=== PATIENT | male | born 1975 | race Caucasian/White ===

== ENCOUNTER 2025-02-10 03:08 | Inpatient (IN) | payer SELFPAY ==
[~2025-02-10] VITALS: Ht 162.6 cm; Wt 74.8 kg
[2025-02-10 04:00] LABS: BASOPHILS % 0.6 % (0.0-2.0); EOSINOPHILS % 3.3 % (0.0-5.0); HEMATOCRIT. 47.3 % (42.0-52.0); HEMOGLOBIN. 15.6 g/dL (14.0-18.0); LYMPHOCYTES % 43.9 % (20.0-50.0); MEAN PLATELET VOLUME 8.2 fl (7.4-10.4); MONOCYTES % 6.4 % (2.0-8.0); NEUTROPHILS % 45.8 % (40.0-76.0); PLATELET 198 x1000/uL (130-400); RED BLOOD CELL COUNT 5.04 mill/uL (4.7-6.1); RED CELL DISTRIBUTION WIDTH 13.6 % (11.6-14.6); WHITE BLOOD COUNT 4.7 x1000/uL (4.5-11.0)
[2025-02-10 04:14] LABS: ALANINE AMINOTRANSFERASE 50 IU/L (10-49); ALBUMIN 4.4 g/dL (3.2-4.8); ASPARTATE AMINOTRANSFERASE 55 IU/L (<34); BILIRUBIN TOTAL 0.3 mg/dL (0.1-1.0); PROTEIN TOTAL 7.5 g/dL (6.0-8.3)
[2025-02-10 04:45] LABS: CHLORIDE 109 mEq/L (98-107); SODIUM 145 mEq/L (136-145)
[2025-02-10 04:46] LABS: CALCIUM 8.7 mg/dL (8.7-10.4); CARBON DIOXIDE 23 mEq/L (21-32)
[2025-02-10 04:49] LABS: BILIRUBIN DIRECT < 0.1 mg/dL (<=3.0); TROPONIN I HIGH SENSITIVITY 292 ng/L (3.0-53)
[2025-02-10 04:51] LABS: CREATININE 0.6 mg/dL (0.6-1.3); GLUCOSE 169 mg/dL (70-105); UREA NITROGEN BLOOD 8 mg/dL (9-23)
[2025-02-10] MEDS: ASPIRIN 325MG EC TABLET PO ONE (05:21)
[2025-02-10] MEDS ORDERED: CLONIDINE 0.1MG TABLET PO PRN (08:30)
[2025-02-10] MEDS ORDERED: MAGNESIUM/ALUMINUM HYDROXIDE/SIMETHICONE 30ML UDC PO PRN (08:30)
[2025-02-10] MEDS ORDERED: DIPHENHYDRAMINE 50MG/ML VIAL IV PRN (08:30)
[2025-02-10] MEDS ORDERED: ZOLPIDEM TARTRATE 5MG TABLET PO PRN (08:30)
[2025-02-10] MEDS ORDERED: ONDANSETRON HCL 4MG/2ML INJ IV PRN (08:30)
[2025-02-10] MEDS ORDERED: ACETAMINOPHEN 325MG TABLET PO PRN ×2 (08:30)
[2025-02-10 08:50] VITALS: BP 138/96; PULSE 75; RESP 18; TEMP 36.7; O2SAT 99
[2025-02-10] MEDS: ENOXAPARIN 80MG/0.8ML SYR SUBCUT SCH (10:59)
[2025-02-10] MEDS ORDERED: METOPROLOL TARTRATE 5MG/5ML VIAL IV PRN (11:45)
[2025-02-10] MEDS: REGADENOSON 0.4 MG/5 ML IV NR (13:00)
[2025-02-10] MEDS: SODIUM CHLORIDE 0.9% 3ML FLUSH IVF SCH (14:07)
[2025-02-10 14:34] VITALS: BP 152/88; PULSE 81; RESP 18; TEMP 36.6
[2025-02-10 16:20] LABS: TROPONIN I HIGH SENSITIVITY 4043 ng/L (3.0-53)
[2025-02-10 16:42] VITALS: PULSE 78; RESP 18; TEMP 36.3
[2025-02-10] MEDS: MORPHINE SULFATE 2 MG/ML INJ (NOT FOR IM USE) IV NR (17:20)
[2025-02-10 17:32] LABS: *AMPHETAMINES SCREEN URINE NEGATIVE (NEGATIVE); *BARBITURATES SCREEN URINE NEGATIVE (NEGATIVE); *BENZODIAZEPINES SCREEN URINE NEGATIVE (NEGATIVE); *COCAINE SCREEN URINE NEGATIVE (NEGATIVE); CANNABINOID URINE SCREEN NEGATIVE (NEGATIVE); ECSTASY MDMA SCREEN URINE NEGATIVE (NEGATIVE); METHADONE URINE SCREEN NEGATIVE (NEGATIVE); OPIATES URINE SCREEN NEGATIVE (NEGATIVE); PHENCYCLIDINE URINE SCREEN NEGATIVE (NEGATIVE)
[2025-02-10] MEDS: CHLORDIAZEPOXIDE 25MG CAPSULE PO SCH (18:55)
[2025-02-10 20:00] VITALS: BP 128/80; PULSE 76; RESP 18; TEMP 36.6; O2SAT 99
[2025-02-10] MEDS: ATORVASTATIN CALCIUM 40MG TABLET PO SCH (21:52)
[2025-02-10 22:25] LABS: TROPONIN I HIGH SENSITIVITY 5968 ng/L (3.0-53)
[2025-02-11] VITALS (7 sets, daily range): BP systolic 110–139; BP diastolic 75–89; PULSE 69–88; RESP 16–18; TEMP 36–36.7; O2SAT 98–100
[2025-02-11] MEDS: ASPIRIN 81MG TABLET PO SCH (08:51)
[2025-02-11] MEDS ORDERED: REGADENOSON 0.4 MG/5 ML IV ONE (13:04)
[2025-02-12] VITALS: BP 115/76; PULSE 90; RESP 18; TEMP 36.2; O2SAT 97
[2025-02-12 04:00] VITALS: BP 113/74; PULSE 83; RESP 17; TEMP 35.6; O2SAT 97
[2025-02-12 08:00] VITALS: BP 104/67; PULSE 75; RESP 18; TEMP 36.8; O2SAT 97
[2025-02-12 12:00] VITALS: BP 114/73; PULSE 85; RESP 18; TEMP 36.2; O2SAT 98
[2025-02-12 14:58] VITALS: BP 114/73; PULSE 85; TEMP 97.1; O2SAT 98
== END 2025-02-12 15:12 | disposition home or self-care (01) | DRG 190 ==
LOC: ER 03:08 → 5WST 05:02
PROVIDERS: ADMIT Internal Medicine; ATTEND Internal Medicine
DX: I21.4 Non-ST elevation (NSTEMI) myocardial infarction (principal); I42.8 Other cardiomyopathies; I50.9 Heart failure, unspecified; I25.10 Atherosclerotic heart disease of native coronary artery without angina pectoris; F10.10 Alcohol abuse, uncomplicated; Y90.9 Presence of alcohol in blood, level not specified
CPT/HCPCS: 36415; 71045; 78452; 80048; 80061; 80076; 80305; 84484; 85025; 93005; 93017; 93306; 99285; A9500; J1650; J2270; J2785